=== PATIENT | male | born 1955 | race Caucasian/White ===

== ENCOUNTER 2023-05-05 18:47 | Observation (INO) | payer OTHER, MEDICARE ==
[~2023-05-05] VITALS: Ht 175.3 cm; Wt 97.1 kg
[2023-05-05] MEDS ORDERED: VITAMIN D310 MC5 PO (18:59)
[2023-05-05] MEDS ORDERED: VITAMIN C500 M5 PO (18:59)
[2023-05-05] MEDS ORDERED: ATORVASTATIN CA40 MG PO (19:01)
[2023-05-05] MEDS ORDERED: ST. JOSEPH ASPI81 M1 PO (19:01)
[2023-05-05 19:51] LABS: BASOPHILS 0.4 % (0-2); HEMATOCRIT 37.9 % (35.0-50.0); HEMOGLOBIN 12.7 g/dL (12.0-18.0); LYMPHOCYTES 12.4 % (24-44); MCH 31.6 (27-36); MCHC 33.4 g/dl (30-36); MCV 94.4 fl (81-99); MONOCYTES 5.9 % (0-12); NEUTROPHILS 80.3 % (39-80); PLATELET COUNT 185 K/uL (140-440); RBC 4.02 M/ul (4.3-5.7); RDW 13.8 (10.5-15.0)
[2023-05-05 20:10] LABS: ALBUMIN 3.6 g/dL (3.4-5.0); ALBUMIN/GLOBULIN RATIO 1.13 (1.1-2.4); ANION GAP 12.1 (7-21); BILIRUBIN, TOTAL 0.8 ng/dL (0.2-1.0); BUN/CREATININE RATIO 16.85 (6.0-28.6); CALCIUM 8.8 mg/dL (8.5-10.1); CREATININE, SERUM 0.89 mg/dL (0.70-1.30); POTASSIUM 4.1 mmol/L (3.5-5.1); PROTEIN, TOTAL 6.8 g/dL (6.4-8.2)
[2023-05-05 21:21] LABS: ABO A; RH NEGATIVE
[2023-05-05 21:22] LABS: ANTIBODY SCREEN NEGATIVE
[2023-05-05 21:32] LABS: BILIRUBIN, URINE NEGATIVE (negative); BLOOD/HGB, URINE NEGATIVE (Negative); KETONE, URINE TRACE (Negative); LEUK ESTERASE, URINE NEGATIVE (negative); NITRITE, URINE NEGATIVE (negative)
[2023-05-05 22:31] LABS: BASOPHILS 0.3 % (0-2); EOSINOPHILS 0.2 % (0-6); HEMOGLOBIN 11.5 g/dL (12.0-18.0); LYMPHOCYTES 5.9 % (24-44); MCH 31.7 (27-36); MCHC 33.7 g/dl (30-36); MCV 93.8 fl (81-99); NEUTROPHILS 88.6 % (39-80); PLATELET COUNT 165 K/uL (140-440); RBC 3.62 M/ul (4.3-5.7); RDW 13.7 (10.5-15.0)
[2023-05-05 23:18] LABS: IS CROSSMATCH COMPATIBLE
[2023-05-05 23:18] LABS: ABO A; RH NEGATIVE
[2023-05-06] VITALS (9 sets, daily range): BP systolic 91–127; BP diastolic 55–64
[2023-05-06 00:17] LABS: INFLUENZA B NAA NEGATIVE (NEGATIVE); RESPIRATORY SYNCYTIAL VIR NAA NEGATIVE (NEGATIVE)
[2023-05-06 03:05] LABS: BASOPHILS 0.4 % (0-2); EOSINOPHILS 0.1 % (0-6); HEMATOCRIT 32.7 % (35.0-50.0); HEMOGLOBIN 10.9 g/dL (12.0-18.0); LYMPHOCYTES 8.5 % (24-44); MCH 31.1 (27-36); MCHC 33.5 g/dl (30-36); MCV 92.7 fl (81-99); PLATELET COUNT 144 K/uL (140-440); RBC 3.52 M/ul (4.3-5.7); RDW 15.2 (10.5-15.0)
[2023-05-06 06:10] LABS: BASOPHILS 0.5 % (0-2); EOSINOPHILS 0.3 % (0-6); HEMATOCRIT 31.6 % (35.0-50.0); HEMOGLOBIN 10.6 g/dL (12.0-18.0); LYMPHOCYTES 19.9 % (24-44); MCH 31.2 (27-36); MCHC 33.6 g/dl (30-36); MCV 93.1 fl (81-99); MONOCYTES 8.7 % (0-12); NEUTROPHILS 70.6 % (39-80); PLATELET COUNT 146 K/uL (140-440); RDW 15.4 (10.5-15.0)
[2023-05-06 06:25] LABS: ALBUMIN 2.9 g/dL (3.4-5.0); ALBUMIN/GLOBULIN RATIO 1.12 (1.1-2.4); ANION GAP 11.1 (7-21); BILIRUBIN, TOTAL 1.3 ng/dL (0.2-1.0); BUN/CREATININE RATIO 19.35 (6.0-28.6); CREATININE, SERUM 0.62 mg/dL (0.70-1.30); POTASSIUM 4.1 mmol/L (3.5-5.1); PROTEIN, TOTAL 5.5 g/dL (6.4-8.2)
[2023-05-06 09:26] LABS: BILIRUBIN, URINE NEGATIVE (negative); BLOOD/HGB, URINE NEGATIVE (Negative); KETONE, URINE SMALL (Negative); LEUK ESTERASE, URINE NEGATIVE (negative); NITRITE, URINE NEGATIVE (negative)
[2023-05-06 09:34] LABS: BACTERIA, URINE NONE SEEN /hpf (negative); CASTS, URINE NONE SEEN \\lpf; COLLECTION TYPE, URINE CLEAN CATCH; CRYSTALS, URINE NONE SEEN (0-1+); EPITHELIAL CELLS, URINE 0 /lpf (0-1+); RED BLOOD CELLS, URINE 0-1 /hpf (0-5); REFLEX CULTURE, URINE No (No)
[2023-05-06 09:36] LABS: BASOPHILS 0.4 % (0-2); EOSINOPHILS 1.1 % (0-6); HEMATOCRIT 33.2 % (35.0-50.0); HEMOGLOBIN 11.2 g/dL (12.0-18.0); MCH 31.1 (27-36); MCHC 33.7 g/dl (30-36); MCV 92.4 fl (81-99); MONOCYTES 7.7 % (0-12); NEUTROPHILS 74.8 % (39-80); PLATELET COUNT 157 K/uL (140-440); RDW 15.1 (10.5-15.0)
[2023-05-06] MEDS ORDERED: TYLENOL325 MG PO (11:23)
--- NOTE | 2023-05-06 13:48 | CONS ---
[facility] [address], [place] [address] Signed DATE OF CONSULTATION: CHIEF COMPLAINT: Fall from horse. 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 [place] is a clinic there in [place], [place]. He has a cardiac stent from several years ago. He has quit seeing his thermal cutter helper, Dr. Franco in [place], [place]. On his own volition, he decided to take aspirin 81 mg two tablets each day. He was getting his horses ready and he was bucked off the horse and landed onto his right flank and hip area. He came down to our local emergency room here at [facility] for evaluation. The initial CT scan showed a large amount of ecchymoses in the right flank and over the right hip and gluteal area with a hematoma. There was some concern whether or not there was some extravasation on the venous phase. Therefore, he received a CT angiogram about 2 hours or so later and again the same findings, but no active extravasation. He was admitted overnight to our hospitalist service. I was asked to see him as a local general surgeon on-call. His hemoglobin was initially 12.7, it went down to 11.5, to 10.9, to 10.6 over about 10 hours. He has been hemodynamically stable, tolerating his diet and has been maintained on normal saline as well. He has another repeat hemoglobin pending about 9 o'clock or so. PAST MEDICAL HISTORY: Coronary artery disease and diverticulosis. PAST SURGICAL HISTORY: Includes cardiac stent x1, tib-fib fracture repair, wisdom teeth extraction, and unremarkable colonoscopy. SOCIAL HISTORY: He does not smoke. He has about four beers a week. He is to his , Aleksandra, at ([phone], they live in [place], [place]. He sees Dr. Haq at [facility]. 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 Dr. Franco is his thermal cutter helper in [place], [place]. FAMILY HISTORY: His mom developed Alzheimer's at age 52. REVIEW OF SYSTEMS: He had 10 systems reviewed and he helped to fill some of the details as above. ALLERGIES: Electronically Signed By: CLAUDIA WILLINGHAM MD 05/06/23 1348 PATIENT NAME: KADIE VIDAL CONSULTATION DATE OF : 53 REPORT #: [id number] PHYSICIAN: CLAUDIA WILLINGHAM MD PCP: OTHER PCP REPORT IS CONFIDENTIAL AND NOT TO BE RELEASED WITHOUT AUTHORIZATION [facility] [address], [place] [address] Signed None. MEDICATIONS: Vitamin C, vitamin D, aspirin 81 mg two tablets p.o. daily, and atorvastatin 40 mg p.o. daily. PHYSICAL EXAMINATION: VITAL SIGNS: Blood pressure been stable around 105/63, heart rate 63, respiratory rate 12, temperature is 98.4, and he is 96% on room air. He is 5 feet 9 inches, at 97 kg. His body mass index is 31. GENERAL: Kadie is a 67-year-old gentleman sitting on the edge of his bed, getting ready to go into the bathroom with his nurse. He is alert, awake, and interactive. He is not lightheaded. LUNGS: Clear to auscultation bilaterally. HEART: Regular rate and rhythm, without murmurs. ABDOMEN: Mild to moderately protuberant. Over the right flank and hip area, he already has a large amount of ecchymoses. It is very firm and convex, at least 12-15 cm in diameter over my hand. LABORATORY DATA: His white blood count 6.3 and hemoglobin was 12.7 down to 10.6 over about 10 hours, it has been stable at the last 3 hours. BUN is 12, creatinine 0.62. Albumin is 2.9. COVID is negative. Urinalysis is negative. RADIOGRAPHIC STUDIES: CT scan of abdomen and pelvis is reviewed and it showed some diverticulosis along with his large area in the right flank and gluteal area with ecchymoses and hematoma and a CT angiogram confirmed the same findings. There has been no change in that hematoma over that couple hours. ASSESSMENT/PLAN: Kadie is a 67-year-old gentleman, on aspirin, who was thrown from his horse onto the ground. He has developed a large right flank and hip gluteal hematoma and ecchymoses. Fortunately, none of his solid organs are injured and there was no extravasation of the contrast. At this point, he seems to be doing well, he is quite stable. We are going to shut off his IV fluids, let him have his clear liquids. He is going to have a repeat hemoglobin here around 09:00 am or so. He is admitted to Dr. Botello. I did speak with Dr. Botello earlier this morning. If he remained stable, he is going to allow the patient to go home with his . I told the patient he needs to check either with his primary care provider or that Cardiology group in [place], [place] regarding the aspirin with respect to his cardiac stent. In the end, [place] He can certainly follow up my office in a week or two, but he could just a while followup with his primary care provider they at the [facility]. He asked to understand that his total bilirubin is going to go up as he reserves that large Electronically Signed By: CLAUDIA WILLINGHAM MD 05/06/23 8488 PATIENT NAME: KADIE VIDAL CONSULTATION DATE OF : 53 REPORT #: [id number] PHYSICIAN: CLAUDIA WILLINGHAM MD PCP: OTHER PCP REPORT IS CONFIDENTIAL AND NOT TO BE RELEASED WITHOUT AUTHORIZATION [facility] [address], [place] [address] Signed amount of blood, and he may actually end up jaundiced until that resolved over several weeks to several months. He has expressed understanding and agrees with the above plan. I have discussed this with the patient, the nurse, and Dr. Botello. Claudia Willingham MD ALB/MODL /[id number] cc: MD Claudia Joy MD Patient Chart [facility] Copies: ESSENCE FRANCO MD, ANDREW L MD ~ Electronically Signed By: CLAUDIA WILLINGHAM MD 05/06/23 1348 PATIENT NAME: KADIE VIDAL CONSULTATION DATE OF : 53 REPORT #: [id number] PHYSICIAN: CLAUDIA WILLINGHAM MD PCP: OTHER PCP REPORT IS CONFIDENTIAL AND NOT TO BE RELEASED WITHOUT AUTHORIZATION
== END 2023-05-06 12:30 | disposition home or self-care (01) ==
LOC: ED 18:47 → CCU 18:49
PROVIDERS: Family Medicine; ADMIT Internal Medicine; ATTEND Internal Medicine
DX: S30.0XXA Contusion of lower back and pelvis, initial encounter (principal); S70.01XA Contusion of right hip, initial encounter; V80.010A Animal-rider injured by fall from or being thrown from horse in noncollision accident, initial encounter; E78.00 Pure hypercholesterolemia, unspecified; I10 Essential (primary) hypertension; I25.10 Atherosclerotic heart disease of native coronary artery without angina pectoris; Z95.5 Presence of coronary angioplasty implant and graft; Z79.82 Long term (current) use of aspirin; Z79.899 Other long term (current) drug therapy
CPT/HCPCS: 36415; 36430; 74174; 74177; 80053; 81001; 81003; 85025; 86850; 86900; 86901; 86922; 87502; 96375; 99285-25; C9803; G0378; J2270; J7030; J7121; P9016; Q9967; U0002